=== PATIENT | female | born 1995 | race Asian ===

== ENCOUNTER 2018-10-14 20:42 | Emergency (ER) | payer OTHER ==
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
[2018-10-14 23:08] VITALS: BP 112/73
== END 2018-10-14 22:40 | disposition home or self-care (01) ==
LOC: ED 20:42
DX: S92.344A Nondisplaced fracture of fourth metatarsal bone, right foot, initial encounter for closed fracture (principal); S50.312A Abrasion of left elbow, initial encounter; V03.90XA Pedestrian on foot injured in collision with car, pick-up truck or van, unspecified whether traffic or nontraffic accident, initial encounter; Y92.410 Unspecified street and highway as the place of occurrence of the external cause; Z88.2 Allergy status to sulfonamides
CPT/HCPCS: 99282